=== PATIENT | male | born 1995 | race Caucasian/White ===

== ENCOUNTER 2019-05-28 15:21 | Emergency (ER) | payer OTHER ==
[~2019-05-28] VITALS: Ht 175.3 cm; Wt 95.3 kg
[2019-05-28 16:48] LABS: BILIRUBIN,URINE NEGATIVE (NEG); CLARITY,URINE CLEAR; COLOR,URINE YELLOW; NITRITE,URINE NEGATIVE (NEG); PROTEIN,URINE NEGATIVE (NEG-TRACE); UROBILINOGEN,URINE 0.2 mg/dL (0.2 mg/dL)
[2019-05-28 16:58] LABS: BACTERIA,URINE 0 /HPF (0-FEW); RBC,URINE 0 /HPF (0-2); WBC,URINE 0 /HPF (0-4)
[2019-05-28 17:00] VITALS: BP 143/77
[2019-05-28] MEDS ORDERED: METOCLOPRAMIDE HCL 10 MG/2 ML VIAL. IV ONE (17:00)
[2019-05-28] MEDS ORDERED: KETOROLAC 15 MG/ML VIAL. IV ONE (17:00)
[2019-05-28] MEDS ORDERED: IV NORMAL SALINE 1000ML BAG 1,000 ML IV ONE (17:00)
--- NOTE | 2019-05-28 17:24 | PHYS DOC ---
Past Medical History Past Medical History: Anxiety Past Surgical History: No Surgical History Additional Information: "vaping" Alcohol Use: Occasionally Drug Use: None Adult General Chief Complaint Chief Complaint: HEADACHE HPI HPI 24-year-old male presents to ER for complaints of posterior headache which is been ongoing for the past few days. He denies any type of injury. He does report he has had sinus congestion. Patient reports he recently moved from [place] last week and was staying in a hotel until a couple of days ago when he got his apartment. Patient states he is sleeping on an air mattress. He reports he ate lunch today denies any nausea or vomiting. Patient states he took Excedrin at approximately 12 PM. Patient denies dizziness, eye pain, or nidus. Patient states he does use E cigarettes and occasional alcohol denies any illicit drugs. Review of Systems Review of Systems Constitutional: Denies fever or chills. Denies fatigue Eyes: Denies change in visual acuity, redness, or eye pain/photosensitivity [] HENT: Denies sore throat. Reports sinus congestion Respiratory: Denies cough or shortness of breath [] Cardiovascular: No additional information not addressed in HPI [] GI: Denies abdominal pain, nausea, vomiting, bloody stools or diarrhea [] : Denies urinary sxs Musculoskeletal: Denies back/neck pain or joint pain [] Integument: Denies rash or skin lesions [] Neurologic: Denies focal weakness or sensory changes. Reports posterior ROCHE. De nies dizziness All other systems were reviewed and found to be within normal limits, except as documented in this note. Current Medications Current Medications Current Medications Medications (Trade) Dose Ordered Sig/David Start Time Stop Time Status Last Admin Dose Admin Ketorolac Tromethamine (Toradol 15mg Vial) 15 mg 1X ONCE 05/28/19 17:00 05/28/19 17:01 DC 05/28/19 16:32 15 MG Metoclopramide HCl (Reglan Vial) 10 mg 1X ONCE 05/28/19 17:00 05/28/19 17:01 DC 05/28/19 16:32 10 MG Sodium Chloride 1,000 ml @ 1,000 mls/hr 1X ONCE 05/28/19 17:00 05/28/19 17:51 DC 05/28/19 16:32 1,000 MLS/HR Allergies Allergies Allergies Coded Allergies Type Severity Reaction Last Updated Verified No Known Drug Allergies 05/28/19 No Physical Exam Physical Exam Constitutional: Well developed, well nourished, no acute distress, non-toxic appearance. Clear speech. HENT: Normocephalic, atraumatic, bilateral mild erythema inner ear canal- no TM bulging/perforation/drainage, mucous membranes pink/dry- bilat. tonsillar swelling/mild erythema- uvula midline, no oral exudates, nose normal. [] Eyes: 3mm PERRLA, EOMI- no pain with eye movements, no nystagmus, conjunctiva normal, no discharge. [] Neck: Normal range of motion, no tenderness/nuchal rigidity, supple, no strid or/gross adenopathy Cardiovascular: Heart rate regular rhythm, no murmur [] Lungs & Thorax: Bilateral breath sounds clear to auscultation- resp. equal/nonlabored Abdomen: Bowel sounds normal, soft, no tenderness Skin: Warm, dry, no erythema, no rash. [] Back: No tenderness, no CVA tenderness. [] Extremities: No tenderness, no cyanosis, no clubbing, ROM intact, no edema. [] Neurologic: Alert and oriented X 3, normal motor function, normal sensory function, no focal deficits noted. [] Psychologic: Affect normal, judgement normal, mood normal. [] Current Patient Data Vital Signs Vital Signs Date Time Temp Pulse Resp B/P (MAP) Pulse Ox O2 Delivery O2 Flow Rate FiO2 05/28/19 17:00 74 15 97 05/28/19 15:39 97.8 156/88 (110) Room Air 97.8 Lab Values Laboratory Tests Test 05/28/19 16:20 05/28/19 17:12 Urine Collection Type Unknown Urine Color Yellow Urine Clarity Clear Urine pH 6.0 Urine Specific Pierson <=1.005 Urine Protein Negative mg/dL (NEG-TRACE) Urine Glucose (UA) Negative mg/dL (NEG) Urine Ketones (Stick) Negative mg/dL (NEG) Urine Blood Negative (NEG) Urine Nitrite Negative (NEG) Urine Bilirubin Negative (NEG) Urine Urobilinogen Dipstick 0.2 mg/dL (0.2 mg/dL) Urine Leukocyte Esterase Negative (NEG) Urine RBC 0 /HPF (0-2) Urine WBC 0 /HPF (0-4) Urine Bacteria 0 /HPF (0-FEW) Group A Streptococcus Rapid Negative (NEGATIVE) EKG EKG [] Radiology/Procedures Radiology/Procedures [] Course & Med Decision Making Course & Med Decision Making Pertinent Labs reviewed. (See chart for details) Patient was evaluated in the ER for complaints of posterior headache with no recent injuries. Patient has had some life changes with recent move from [place] and had been staying in a hotel till he received an apartment in the past couple of days. Patient had with patient regarding possible stress related to recent move. Patient states he has been eating without any GI symptoms. Patient was treated with IV fluids and headache cocktail and reported his headache had subsided. Patient reports following the Reglan he did feel slightly anxious and restless. Patient had no uncontrollable behavior and following completion of IV fluid infusion reports his restlessness had improved. Patient is comfortable with home discharge without further monitoring. He did have bilateral tonsillar swelling and erythema with sinus congestion and so strep test was done which was negative. Patient advised on increasing fluid intake. Community clinic resource sheet will be provided as patient just moved to this area for follow-up purposes.Education provided on signs and symptoms to return to ER. Discharge instructions were discussed. Patient to follow-up with primary care physician if symptoms persist or with any concerns. At time of discharge discussion patient had clear speech no focal weakness and was in no visible distress. Dragon Disclaimer Dragon Disclaimer This electronic medical record was generated, in whole or in part, using a voice recognition dictation system. Departure Departure Impression: Primary Impression: Head ache Disposition: 01 HOME, SELF-CARE Condition: STABLE Referrals: NO PCP (PCP) Patient Instructions: General Headache Without Cause Additional Instructions: Tylenol and/or ibuprofen as needed for pain as directed on container. If headaches recur you can try [id number] headache medications as directed on container. If headaches continue it is also advised that you establish a primary care physician and follow-up with them for reevaluation and further care. If unable to get an appointment and with concerns you can always return to the emergency department for reevaluation and further care. Drink plenty of water daily. MINERVA MIRAMONTES APRN May 28, 2019 17:24
== END 2019-05-28 17:50 | disposition home or self-care (01) ==
LOC: ER 15:21
DX: R51 Headache (principal); R09.81 Nasal congestion; F41.9 Anxiety disorder, unspecified
CPT/HCPCS: 81001; 87070; 87880; 96374; 96375; 99284; J1885; J2765; J7030

== ENCOUNTER 2019-07-29 14:22 | Emergency (ER) | payer OTHER ==
[~2019-07-29] VITALS: Ht 177.8 cm; Wt 95.3 kg
[2019-07-29 15:02] VITALS: BP 152/77
--- NOTE | 2019-07-29 15:35 | PHYS DOC ---
Past Medical History Past Medical History: Anxiety Past Surgical History: No Surgical History Alcohol Use: Occasionally Drug Use: None Adult General Chief Complaint Chief Complaint: ANXIETY/PANIC ATTACK HPI HPI Patient is a 24 year old male that presents to the ER stating that he has been having intermittent shortness of breath that's been worse when laying down and going to sleep this been ongoing for week. The patient denies cough, fever, runny nose, congestion. The patient has a history of asthma and has been using his inhaler at home that has not been helping. Patient did state that he quit use cigarettes a couple weeks ago. Denies pain this time. Review of Systems Review of Systems Constitutional: Denies fever or chills [] Eyes: Denies change in visual acuity, redness, or eye pain [] HENT: Denies nasal congestion or sore throat [] Respiratory: Denies cough but reports intermittent shortness of breath [] Cardiovascular: No additional information not addressed in HPI [] GI: Denies abdominal pain, nausea, vomiting, bloody stools or diarrhea [] : Denies dysuria or hematuria [] Musculoskeletal: Denies back pain or joint pain [] Integument: Denies rash or skin lesions [] Neurologic: Denies headache, focal weakness or sensory changes [] Endocrine: Denies polyuria or polydipsia [] Complete systems were reviewed and found to be within normal limits, except as documented in this note. Allergies Allergies Allergies Coded Allergies Type Severity Reaction Last Updated Verified No Known Drug Allergies 05/28/19 No Physical Exam Physical Exam Constitutional: Well developed, well nourished, no acute distress, non-toxic appearance. [] HENT: Normocephalic, atraumatic, bilateral external ears normal, oropharynx moist, no oral exudates, nose normal. [] Eyes: PERRLA, EOMI, conjunctiva normal, no discharge. [] Neck: Normal range of motion, no tenderness, supple, no stridor. [] Cardiovascular:Heart rate regular rhythm, no murmur [] Lungs & Thorax: Bilateral breath sounds clear to auscultation [] Skin: Warm, dry, no erythema, no rash. [] Back: No tenderness, no CVA tenderness. [] Extremities: No tenderness, no cyanosis, no clubbing, ROM intact, no edema. [] Neurologic: Alert and oriented X 3, normal motor function, normal sensory function, no focal deficits noted. [] Psychologic: Affect normal, judgement normal, mood normal. [] Current Patient Data Vital Signs Vital Signs Date Time Temp Pulse Resp B/P (MAP) Pulse Ox O2 Delivery O2 Flow Rate FiO2 07/29/19 15:02 98.4 89 16 152/77 (102) 100 Room Air 98.4 EKG EKG [] Radiology/Procedures Radiology/Procedures [][facility] [address] [place] [address] IMAGING REPORT Signed PATIENT: JAKE POLK ACCOUNT: [id number] : 1995 LOCATION: ER AGE: 24 SEX: M EXAM STATUS: REG ER ORD. PHYSICIAN: GABBIE FIERRO APRN REASON: sob PROCEDURE: CHEST PA & LATERAL Exam performed: 2 views of the chest. Indication: Shortness of breath Date of Service: 07/29/2019 3:31 PM . Comparison : None available Findings: PA and lateral radiographs of the chest reveal a normal cardiomediastinal contour. The lungs are clear. No pleural fluid is seen. The visualized osseous structures are unremarkable. Impression: No acute cardiopulmonary process seen. Electronically signed by: Lisa De La Paz MD (07/29/2019 4:14 PM) [facility] DICTATED and SIGNED BY: LISA DE LA PAZ MD DATE: 07/29/19 1617 Course & Med Decision Making Course & Med Decision Making Pertinent Labs and Imaging studies reviewed. (See chart for details) Will get a chest x-ray. The patient does not appear toxic. The patient has a history of anxiety and just started a new job. X-ray is negative. Will d/c home. Dragon Disclaimer Dragon Disclaimer This electronic medical record was generated, in whole or in part, using a voice recognition dictation system. Departure Departure Impression: Primary Impression: Shortness of breath Disposition: HOME, SELF-CARE Condition: STABLE Referrals: NO PCP (PCP) Patient Instructions: Shortness of Breath Additional Instructions: Thank you for visiting [facility]. We appreciate you trusting us with your care. If any additional problems come up don't hesitate to return to visit us. Please follow up with your primary care provider so they can plan additional care if needed and know about the problem that you had. If symptoms worsen come back to the Emergency Department. Any concerning symptoms that start such as chest pain, shortness of air, weakness or numbness on one side of the body, running high fevers or any other concerning symptoms return to the ER. Please follow up with your primary care doctor regarding these symptoms. GABBIE FIERRO APRN Jul 29, 2019 15:35
--- NOTE | 2019-07-29 16:17 | RAD ---
Exam performed: 2 views of the chest. Indication: Shortness of breath Date of Service: 07/29/2019 3:31 PM . Comparison : None available Findings: PA and lateral radiographs of the chest reveal a normal cardiomediastinal contour. The lungs are clear. No pleural fluid is seen. The visualized osseous structures are unremarkable. Impression: No acute cardiopulmonary process seen. Electronically signed by: Ade De La Paz MD (07/29/2019 4:14 PM) [facility]
== END 2019-07-29 16:44 | disposition home or self-care (01) ==
LOC: ER 14:22
DX: R06.02 Shortness of breath (principal); F41.9 Anxiety disorder, unspecified; J45.909 Unspecified asthma, uncomplicated; Z87.891 Personal history of nicotine dependence
CPT/HCPCS: 71046; 99284